=== PATIENT | female | born 1955 | race Caucasian/White ===

== ENCOUNTER 2018-08-01 18:55 | Emergency (ER) | payer BC, OTHER ==
[~2018-08-01] VITALS: Ht 157.5 cm; Wt 77.1 kg
--- OUTSIDE RECORDS SUMMARY | 2018-08-01 18:59 | XMS REPORT | Continuity of Care Document ---
Author Author [facility] Organization [facility] Address Unknown Phone Unavailable Allergies There is no data. Medications There is no data. Problems There is no data. Procedures There is no data. Results There is no data. Encounters ACCT No. Visit Date/Time Discharge Status Pt. Type Provider Facility Loc./Unit Complaint [id number] 10/05/2012 16:46:00 10/05/2012 23:59:59 CLS Outpatient [id number] 12/02/2017 08:00:00 12/02/2017 23:59:00 DIS Outpatient CARROLL PERDOMO [id number] 10/02/2016 08:05:00 10/02/2016 23:59:00 DIS Outpatient CARROLL PERDOMO
[2018-08-01] MEDS ORDERED: OMEP20CA12 (19:18)
[2018-08-01] MEDS ORDERED: TRIA1CAP4 (19:18)
[2018-08-01] MEDS ORDERED: MUPI15CR11 (19:18)
[2018-08-01] MEDS ORDERED: NAPR-1071 PO (19:58)
[2018-08-01] MEDS ORDERED: CYCL10TA9 PO (19:58)
--- NOTE | 2018-08-01 19:58 | ED Neck-Back Pain/Injury ---
General Chief Complaint: General Problems/Pain Stated Complaint: NECK PAIN,SHOULD PAIN Nursing Triage Note: LEFT NECK PAIN NO INJURY. Nursing Sepsis Screen: No Definite Risk Source of Information: Patient, Other Exam Limitations: No Limitations History of Present Illness Date Seen by Provider: Aug 01, 2018 Time Seen by Provider: 19:43 Initial Comments Patient presents to ER by private conveyance with chief complaint of left shoulder pain posterior trapezius is spasms. She's not having any pain in her neck. No injury. She is right-handed. She says she feels some electrical nerve like pain going through her shoulder down to her left medial elbow occasionally. She uses some NSAIDs heat and massage and some CBD oil with modest relief. Her friend had torticollis recently and she was concerned she might also be developing that. She does not have any muscle relaxants. Allergies and Home Medications Allergies Coded Allergies: No Known Drug Allergies (Unverified , 08/01/18) Patient Home Medication List Home Medication List Reviewed: Yes Review of Systems Constitutional: No chills, No diaphoresis EENTM: No ear discharge, No hearing loss, No ear pain Respiratory: No cough, No short of breath Cardiovascular: No chest pain, No edema Gastrointestinal: No abdominal pain, No constipation, No diarrhea Genitourinary: No discharge, No dysuria : No Past Cdgjskq-Srevef-Bcceum Hx Patient Social History Alcohol Use: Denies Use Recreational Drug Use: No Smoking Status: Never a Smoker 2nd Hand Smoke Exposure: No Recent Foreign Travel: No Contact w/Someone Who Travel: No Recent Infectious Disease Expo: No Recent Hopitalizations: No Immunizations Up To Date Tetanus Booster (TDap): Unknown Seasonal Allergies Seasonal Allergies: No Past Medical History Surgeries: No Respiratory: No Cardiac: Yes Hypertension Neurological: No : 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 oz. 77.866067bw; BMI Method:Stated General Appearance: No Apparent Distress, WD/WN HEENT: PERRL/EOMI, TMs Normal, Normal ENT Inspection, Pharynx Normal, Moist Mucous Membranes Neck: Full Range of Motion, Normal Inspection, Non Tender, Supple Cardiovascular: Regular Rate, Rhythm, No Edema, Normal Peripheral Pulses Respiratory: Chest Non Tender, Lungs Clear, Normal Breath Sounds, No Accessory Muscle Use, No Respiratory Distress Peripheral Pulses: 2+ Radial Pulses (R), 2+ Radial Pulses (L) Extremity: Normal Capillary Refill, Normal Inspection, Normal Range of Motion, Non Tender, No Calf Tenderness, No Pedal Edema Neurologic/Psychiatric: Alert, Oriented x3 Progress/Results/Core Measures Results/Orders My Orders Orders - BARBARA MONTERO Ketorolac Injection (Toradol Injection) (08/01/18 20:00) Orphenadrine Injection (Norflex Injectio (08/01/18 20:00) Vital Signs/I&O 08/01/18 19:09 Temp 98.0 Pulse 104 Resp 18 B/P (MAP) 183/89 (120) Pulse Ox 100 O2 Delivery Room Air Blood Pressure Mean: 120 Progress Progress Note : Time: 19:55 Progress Note Patient does not have any paracervical spinous muscle strain sprain but she does have what appears to be a sprain of her left trapezius. When palpated there she has a muscle belly in spasm and he re-creates her symptoms. Plan to give her some Norflex, Toradol and put her on naproxen for the next couple weeks with follow-up with primary care. Catherine Dawson Departure Impression Primary Impression: Trapezius muscle spasm Disposition: 01 HOME, SELF-CARE Condition: Stable Departure-Patient Inst. Decision time for Depature: 19:56 Referrals: CARROLL PERDOMO DO (PCP) Primary Care Physician Patient Instructions: Muscle Spasms (DC), Muscle Strain Add. Discharge Instructions: Start taking the prescription naproxen tomorrow one tablet twice a day for the next 2 weeks. Use Tylenol 1000 mg every 8 hours as needed for breakthrough pain. You can also use topical creams such as icy hot or Biofreeze, heat and massage. Expect improvement in the next couple weeks. Follow-up with primary care if necessary. For muscle spasms in your trapezius you can take cyclobenzaprine every 8 hours as needed. One half to one tablet. All discharge instructions reviewed with patient and/or family. Voiced understanding. Scripts Cyclobenzaprine HCl (Cyclobenzaprine HCl) 10 Mg Tablet 10 MG PO Q8H PRN for SPASMS, #15 TAB 0 Refills Prov: BARBARA MONTERO 08/01/18 Naproxen (Naprosyn) 500 Mg Tablet 500 MG PO BID for 14 Days, #30 TAB 0 Refills Prov: BARBARA MONTERO 08/01/18 BARBARA MONTERO Aug 01, 2018 19:58
[2018-08-01] MEDS ORDERED: KETOROLAC 30 MG/ML VIAL IM ONE (20:00)
[2018-08-01] MEDS ORDERED: ORPHENADRINE 60 MG/2 ML (NORFLEX) AMP IM ONE (20:00)
[2018-08-01 20:39] VITALS: BP 183/89
== END 2018-08-01 20:29 | disposition home or self-care (01) ==
LOC: EDUNIT# 18:55 → ER 18:56
DX: M62.838 Other muscle spasm (principal); I10 Essential (primary) hypertension; K21.9 Gastro-esophageal reflux disease without esophagitis
CPT/HCPCS: 99284